=== PATIENT | male | born 1955 | race Caucasian/White ===

== ENCOUNTER 2023-11-25 10:31 | Emergency (ER) | payer OTHER, MEDICARE, SELFPAY ==
--- NOTE | 2023-11-25 10:49 | ED.GENADULT ---
HPI - General Adult General Chief complaint: Wound/Laceration Stated complaint: Left hand Injury Time Seen by Provider: 11/25/23 10:36 History of Present Illness HPI narrative: Chance is a 68M with a PMH of DMII, and CAD on clopidogrel that presented to the ED after he poked him self with a knife. He was using a clean knife cutting a plastic ring when it slipped and hit between his left 1st and 2nd digit. He believes it penetrated about 1/4 of and inch. He has no numbness or tingling in his left hand. Review of Systems Review of Systems: All systems reviewed & are unremarkable except as noted in HPI and below Exam Const: General: cooperative, healthy appearing, comfortable, no acute distress, well developed, alert, awake and Physically active Orientation/consciousness: oriented to person, oriented to place and oriented to time HENMT: Head: normal to inspection, normocephalic and atraumatic Ears: hearing grossly normal bilaterally and external ears normal Face/Nose/Sinus: Normal external nose present Eyes: General: appearance normal, both eyes and all related structures Periorbital: periorbital findings normal Sclera: sclerae normal Pupils: Equal, round and reactive pupils present Neck: Neck: normal visual inspection Chest: Chest palpation & inspection: normal inspection of the chest Resp: Effort & Inspection: normal respiratory effort, able to speak in complete sentences and no respiratory distress Cardio: Jugular venous distension: no JVD Skin: General skin exam: normal color and no rashes or lesions noted Other: 1 cm laceration on the left hand between the first and second digit with squirting bleeding. Neuro: General: oriented to person, oriented to place and oriented to time Cranial nerves: Yes Equal, round and reactive pupils present Extrem: General: normal to inspection Discharge Plan Discharge Clinical Impression: Laceration Patient Disposition: Home, Self-Care Condition: Stable Instructions: Care For Your Stitches (ED) Additional Instructions: Please feel free to return to the ED for any new bleeding or any other concerns. Follow-up/Referrals: UNKNOWN,DOCTOR [Primary Care Provider] -
[2023-11-25 11:08] VITALS: BP 140/95; PULSE 81; RESP 20; TEMP 36.9; O2SAT 94
[2023-11-25 11:17] VITALS: BP 158/74; PULSE 73; RESP 20; TEMP 36.6; O2SAT 94
[2023-11-25] MEDS: AMPICILLIN SULB 3 GM/NS 100 ML 3 GM/100 ML VIAL IVPB (12:18)
--- NOTE | 2023-11-25 12:26 | PC.NURSE ---
1120 PT DISCHARGED AND WALKED TO EXIT PT STARTED BLEEDING AGAIN AND RETURNED TO ROOM PRESSURE DRESSING APPLIED [address] [facility] CALLED FOR TRANSFER PT ACCEPTED TO ER TO SEE HAND SURGEON 1154 [facility] CALLED FOR TRANFER
== END 2023-11-25 12:23 | disposition short-term general hospital (02) ==
PROVIDERS: Emergency Provider Family Medicine
DX: S61.412A Laceration without foreign body of left hand, initial encounter (principal); I25.10 Atherosclerotic heart disease of native coronary artery without angina pectoris; E11.9 Type 2 diabetes mellitus without complications; W26.0XXA Contact with knife, initial encounter
CPT/HCPCS: 96374; 99285; J0295